=== PATIENT | female | born 2000 | race Caucasian/White ===

== ENCOUNTER 2022-03-17 14:48 | Emergency (ER) | payer MEDICAID ==
[~2022-03-17] VITALS: Ht 167.6 cm; Wt 73.0 kg
[2022-03-17 17:22] LABS: BASOPHILS % 0.3 % (0.0-2.0); EOSINOPHILS % 0.7 % (0.0-5.0); HEMATOCRIT. 35.5 % (36.0-48.0); HEMOGLOBIN. 11.2 g/dL (12.0-16.0); LYMPHOCYTES % 21.7 % (20.0-50.0); MEAN CORPUSCULAR HEMOGLOBIN 22.3 pg (28.0-32.0); MEAN CORPUSCULAR VOLUME 70.7 fL (81.0-99.0); MEAN PLATELET VOLUME 10.4 fl (7.4-10.4); MONOCYTES % 7.5 % (2.0-8.0); NEUTROPHILS % 69.8 % (40.0-76.0); PLATELET 228 x1000/uL (130-400); RED BLOOD CELL COUNT 5.03 mill/uL (4.2-5.4); RED CELL DISTRIBUTION WIDTH 17.9 % (11.6-14.6)
[2022-03-17 17:26] LABS: CHLORIDE 106 mEq/L (98-107)
[2022-03-17 17:45] LABS: HCG SCREEN NEGATIVE
[2022-03-17 17:51] LABS: BG DEOXYHEMOGLOBIN 0.9 % (0.0-5.0); BG FRACTION INSPIRED OXYGEN 28; BG HCO3 ACT 22.2 mmol/L (22.0-26.0); BG METHEMOGLOBIN 0.9 % (0.0-1.5); BG OXYGEN SATURATION 99.1 % (92.0-98.5); BG OXYHEMOGLOBIN 97.2 % (94.0-97.0); BG PCO2 35.7 mmHg (35.0-45.0); BG PH 7.411 (7.350-7.450); BG PO2 150.9 mmHg (75.0-100.0); BG SAMPLE SITE RIGHT BRACHIAL; BG TOTAL HEMOGLOBIN 11.4 g/dL (12.0-18.0); BG VENT MODE NASAL CANNULA
[2022-03-17 19:25] VITALS: BP 133/86
== END 2022-03-17 20:00 | disposition home or self-care (01) ==
LOC: ER 14:48
DX: Z57.5 Occupational exposure to toxic agents in other industries (principal); R55 Syncope and collapse; R07.9 Chest pain, unspecified; D57.3 Sickle-cell trait
CPT/HCPCS: 36415; 36600; 71045; 80053; 82375; 82805; 83880; 84484; 84703; 85025; 93005; 99285

== ENCOUNTER 2022-03-20 10:46 | Emergency (ER) | payer MEDICAID ==
[~2022-03-20] VITALS: Ht 167.6 cm; Wt 68.0 kg
[2022-03-20 10:55] VITALS: BP 124/91
== END 2022-03-20 15:11 | disposition left against medical advice (07) ==
LOC: ER 10:46
DX: Z53.21 Procedure and treatment not carried out due to patient leaving prior to being seen by health care provider (principal)

== ENCOUNTER 2023-12-25 13:41 | Emergency (ER) | payer MEDICAID ==
[~2023-12-25] VITALS: Ht 170.2 cm; Wt 73.0 kg
[2023-12-25 13:43] VITALS: O2SAT 99
[2023-12-25] MEDS: IBUPROFEN 600MG TABLET PO ONE (14:14)
[2023-12-25 14:17] VITALS: TEMP 36.83628
[2023-12-25] MEDS ORDERED: LIDOCAINE HCL 1% 20ML VIAL INFIL ONE (14:45)
[2023-12-25] MEDS: HYDROCODONE/ACETAMINOPHEN 5/325MG TABLET PO ONE (15:55)
[2023-12-25 16:00] VITALS: BP 137/95; PULSE 72; RESP 14; O2SAT 99
[2023-12-25] MEDS ORDERED: IBUP-2029 MT (16:59)
== END 2023-12-25 17:26 | disposition home or self-care (01) ==
LOC: ER 13:41
DX: S92.512A Displaced fracture of proximal phalanx of left lesser toe(s), initial encounter for closed fracture (principal); W22.01XA Walked into wall, initial encounter; Y93.89 Activity, other specified; Y92.89 Other specified places as the place of occurrence of the external cause; Y99.8 Other external cause status
CPT/HCPCS: 26742; 73620; 99284; 73660; J3490